=== PATIENT | male | born 1950 | race Caucasian/White ===

== ENCOUNTER 2017-08-16 08:54 | Emergency (ER) | payer MEDICARE ==
[~2017-08-16] VITALS: Ht 182.9 cm; Wt 108.0 kg
[2017-08-16 08:57] VITALS: BP 134/70; PULSE 106; RESP 18; TEMP 98.8; O2SAT 95
[2017-08-16] MEDS ORDERED: SPIRCAP INH (09:04)
[2017-08-16] MEDS ORDERED: PROB500T8 PO (09:04)
[2017-08-16] MEDS ORDERED: ALBUAER3 INH (09:04)
[2017-08-16] MEDS ORDERED: DULE200A INH (09:04)
[2017-08-16] MEDS ORDERED: LISI10TA3 PO (09:04)
[2017-08-16] MEDS ORDERED: PRED20 PO (09:21)
[2017-08-16] MEDS ORDERED: INSPIREASE DRUG1 EA (09:21)
[2017-08-16] MEDS ORDERED: AZIT250T3 PO (09:21)
--- NOTE | 2017-08-16 09:21 | PD ---
HPI Chief Complaint: Respiratory Distress Time Seen by Provider: 09:10 Travel History International Travel<30 days: No Contact w/Intl Traveler<30days: No Traveled to known affect area: No History of Present Illness HPI This is a 67 year old male who presents to the emergency department with wheezing going on for 2 days, constant, moderate severity, worse with exertion associated with productive cough with yellow sputum. He denies any fevers or chills. He has a long history of asthma. He has been using his rescue inhaler but hasn't been helping. He just traveled from [place] in a car and arrived yesterday. He denies any chest pain and says this shortness of breath feels just like his asthma has been the past. [facility] Past Medical History Asthma: Yes Gout: Yes Hypertension: Yes Past Surgical History Surgical History: No Previous Surgery Social History Tobacco Use: No Substance Use: No Allergies-Medications (Allergen,Severity, Reaction): Coded Allergies: ciprofloxacin (Verified Allergy, Severe, Anaphylaxis, 08/16/17) Reported Meds & Prescriptions Reported Meds & Active Scripts Active Reported Proair Hfa 8.5 GM Inh (Albuterol Sulfate) 90 Mcg/Act Aer 1 Puff INH Q4H PRN 108 mcg/actuation Dulera 120 Act Inh (Mometasone-Formoterol 120 Act Inh) 200-5 Mcg/Act Inh 2 Puff INH BID Spiriva Handihaler (Tiotropium Inh) 18 Mcg Cap 18 Mcg INH DAILY 1 capsule = 18 mcg Probenecid 500 Mg Tab 500 Mg PO Q12HR Lisinopril 10 Mg Tab 10 Mg PO DAILY Review of Systems Except as stated in HPI: all other systems reviewed are Neg Physical Exam Narrative GENERAL:Well appearing, no acute distress SKIN: Focused skin assessment warm and dry. HEAD: Atraumatic. Normocephalic. EYES: Pupils equal and round. No injection or drainage. ENT: Moist mucous membranes NECK: Trachea midline. CARDIOVASCULAR: Regular rate and rhythm. No murmur appreciated. RESPIRATORY: Diffuse wheezing in the bilateral lung bases, no accessory muscle use or increased work of breathing. GASTROINTESTINAL: Abdomen soft, non-tender, nondistended. MUSCULOSKELETAL: No obvious deformities. NEUROLOGICAL: Awake and alert. No obvious cranial nerve deficits. Moving all extremities. PSYCHIATRIC: Appropriate mood and affect; insight and judgment normal. Data Data Last Documented VS Vital Signs Date Time Temp Pulse Resp B/P (MAP) Pulse Ox O2 Delivery O2 Flow Rate FiO2 08/16/17 08:57 98.8 106 18 134/70 (91) 95 Room Air MDM Medical Decision Making Medical Screen Exam Complete: Yes Emergency Medical Condition: Yes Differential Diagnosis Asthma exacerbation, pulmonary embolism, acute coronary syndrome, influenza Narrative Course This is a 67 year old male who presents to the emergency department with increasing wheezing this been going on for 2 days. He has a long history of asthma and he says this feels like an asthma exacerbation. I hear objective wheezing in the lung bases. I considered pulmonary embolism given he just arrived on a long car trip from [place]. I don't think this is a PE as the patient has no pleuritic chest pain, and I hear objective wheezing on his exam. He was advised if he doesn't feel better if something changes to return to the emergency department. He was given prednisone, azithromycin and a spacer. Diagnosis Primary Impression: Asthma exacerbation Qualified Codes: J45.21 - Mild intermittent asthma with (acute) exacerbation Patient Instructions: General Instructions Additional Instructions: If you develop severe shortness of breath, chest pain, or difficulty breathing return to the emergency department. Use albuterol every 4 hours for the next 2 days. Then use as needed for wheezing. Complete your course of steroids. Complete your course of antibiotics. Follow up with your primary care physician in 2-3 days if your symptoms have not improved. Med/Other Pt SpecificInfo: Prescription(s) given Scripts Spacer/Device For Mdi (Inspirease Drug Delivery) 1 Ea Mis EA .ROUTE DIRECTED, #1 0 Refills Prov: Jazmin Anderson MD 08/16/17 Azithromycin (Azithromycin) 250 Mg Tab 250 MG PO DIRECTED for Infection, #6 TAB 0 Refills Take 2 tabs (500 mg) on day 1 then 1 tab daily x 4 days. Prov: Jazmin Anderson MD 08/16/17 Prednisone (Prednisone) 20 Mg Tab 40 MG PO DAILY, #10 TAB 0 Refills Take 40 mg (2 tablets) daily for 5 days Prov: Jazmin Anderson MD 08/16/17 Disposition: 01 DISCHARGE HOME Condition: Stable Jazmin Anderson MD Aug 16, 2017 09:21
== END 2017-08-16 09:47 | disposition home or self-care (01) ==
LOC: NEPD 08:54
DX: J45.901 Unspecified asthma with (acute) exacerbation (principal); M10.9 Gout, unspecified; I10 Essential (primary) hypertension; Z88.8 Allergy status to other drugs, medicaments and biological substances; Z79.899 Other long term (current) drug therapy
CPT/HCPCS: 99284